=== PATIENT | female | born 1980 | race American Indian/Alaskan Native ===

== ENCOUNTER 2020-12-24 08:42 | Inpatient (IN) | payer MEDICAID ==
[2020-12-24] MEDS ORDERED: PROMETHAZINE 25 MG RECT SUPP PR PRN (10:00)
[2020-12-24] MEDS ORDERED: IBUPROFEN 600 MG TAB PO SCH (10:00)
[2020-12-24] MEDS ORDERED: LANOLIN/ZINC/DIMETHICONE (LANSINOH) 7 GM TP PRN (10:00)
[2020-12-24] MEDS ORDERED: PROMETHAZINE 25 MG TAB PO PRN (10:00)
[2020-12-24] MEDS ORDERED: diphenhydrAMINE 25 MG CAP PO PRN (10:00)
[2020-12-24] MEDS ORDERED: WITCH HAZEL/ GLYCERIN PAD TP PRN (10:00)
[2020-12-24] MEDS ORDERED: ONDANSETRON 4 MG/2 ML INJ IV PRN (10:00)
[2020-12-24] MEDS ORDERED: LOPERAMIDE 2 MG CAP PO PRN (10:18)
[2020-12-24] MEDS ORDERED: LIDOCAINE (2%) 20 MG/1 ML VIAL 20 ML MDV INFILTRATI NR (10:18)
[2020-12-24] MEDS ORDERED: METHYLERGONOVINE MALEATE 0.2 MG/ML VIAL IM PRN (10:18)
[2020-12-24] MEDS ORDERED: OXYTOCIN 10 UNIT/1 ML INJ IM PRN (10:18)
[2020-12-24] MEDS ORDERED: CARBOPROST TROMETHAMINE 250 MCG/1 ML INJ IM PRN (10:18)
[2020-12-24] MEDS ORDERED: TERBUTALINE 1 MG/1 ML INJ SUB-Q PRN (10:18)
[2020-12-24] MEDS ORDERED: ePHEDrine SULFATE 50 MG/1 ML INJ IV PRN (10:18)
[2020-12-24] MEDS ORDERED: BUTORPHANOL 2 MG/1 ML INJ IV PRN ×2 (10:30)
[2020-12-24] MEDS ORDERED: miSOPROStol 200 MCG TAB PR PRN (10:30)
[2020-12-24 10:40] LABS: Hematocrit 35.4 % (30.3-42.9); Hemoglobin 12.2 gm/dl (10.1-14.3)
[2020-12-24] MEDS ORDERED: OXYTOCIN DRIP 30 UNITS/500 ML BAG IV SCH (11:00)
[2020-12-24] MEDS ORDERED: DINOPROSTONE 10 MG VAG SUPP VG NR (11:30)
[2020-12-24] MEDS: LACTATED RINGERS 1,000 ML IV SCH ×2 (12:06→19:21)
--- NOTE | 2020-12-24 13:19 | History and Physical Report ---
History of Present Illness Date of examination: 12/24/20 Date of admission: 12/24/20 09:32 Chief complaint: "I was sent for an induction" History of present illness: 40 y/o presents to [facility] @ 39.1 wks for an IOL r/t AMA and obesity. Pt initiated her pnc @ [facility] @ 10 5/7 wks. She was co managed by [facility] r/t AMA and maternal obesity. 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 Pt took Valtrex, Fe and Vit D throughout her preg. She has a hx of hemorrhoidal surgery. Pt is a former smoker and and reports drinking alcohol occ. Family hx of ca, stroke, and hypothyroidism. Pt's GBS is neg. She was admitted to L&D for a cervidil IOL. Past History Past Medical History: other (vit d def, anemia, AMA, morbid obesity) Past Surgical History: other (hemorrhoidal surgery) FLARER History: herpes Family/Genetic History: cancer, other (stroke, hypothyroidism,) Social history: , full code (former smoker, occ alcohol use), other - Obstetrical History Expected Date of Delivery: 12/30/20 Actual Gestation: 39 Week(s) 1 Day(s) : 8 Para: 4 Hx # Term Pregnancies: 4 Spontaneous Abortions: 1 Induced : 2 Number of Living Children: 4 Medications and Allergies Allergies Allergy/AdvReac Type Severity Reaction Status Date / Time No Known Allergies Allergy Verified 03/12/14 08:08 Home Medications Medication Instructions Recorded Confirmed Last Taken Type Vit-Fe Fumar-FA [ 1 tab PO QDAY 09/07/15 12/24/20 12/24/20 History Vitamin] Calcium Carbonate [Tums 500MG CHEW] 1,000 mg PO PRN PRN 12/24/20 12/24/20 12/24/20 History Tylenol 1,000 mg PO PRN PRN 12/24/20 12/24/20 12/23/20 History Valacyclovir HCl [Valtrex] 1,000 mg PO DAILY 12/24/20 12/24/20 12/24/20 History Vitamin D (Nf) 1 tab PO QWEEK 12/24/20 12/24/20 12/18/20 History Active Meds: Active Medications Butorphanol Tartrate (Butorphanol 2 Mg/1 Ml Inj) 2 mg IV Q2H PRN PRN Reason: Pain , Severe (7-10) Butorphanol Tartrate (Butorphanol 2 Mg/1 Ml Inj) 1 mg IV Q2H PRN PRN Reason: Pain, Moderate(4-6) LABOR PAIN Carboprost Tromethamine (Carboprost Tromethamine 250 Mcg/1 Ml Inj) 250 mcg IM ONCE PRN PRN Reason: Uterine Bleeding Stop: 12/25/20 10:17 Dinoprostone (Dinoprostone 10 Mg Vag Supp) 10 mg VG ONCE NR Stop: 12/24/20 23:00 Last Admin: 12/24/20 11:53 Dose: 10 mg Documented by: Ephedrine Sulfate (Ephedrine Sulfate 50 Mg/1 Ml Inj) 10 mg IV Q2M PRN PRN Reason: Hypotension Fentanyl (Fentanyl 100 Mcg/2 Ml Inj) 100 mcg IV Q2H PRN PRN Reason: Pain,Severe (7-10) LABOR PAIN Oxytocin/Sodium Chloride (Pitocin/Ns 30 Unit/500ml) 30 units in 500 mls @ 2 mls/hr IV TITR NAOMI; Protocol Lactated Ringer's (Lactated Ringers) 1,000 mls @ 125 mls/hr IV DIRECT NAOMI Last Admin: 12/24/20 12:06 Dose: 125 mls/hr Documented by: Oxytocin/Sodium Chloride (Pitocin/Ns 30 Unit/500ml) 30 units in 500 mls @ 40 mls/hr IV TITR NAOMI; Protocol Lidocaine (Lidocaine (2%) 20 Mg/1 Ml Vial 20 Ml Mdv) 20 ml INFILTRATI ONCE NR Stop: 12/24/20 16:00 Loperamide HCl (Loperamide 2 Mg Cap) 2 mg PO ONCE PRN PRN Reason: give with Hemabate Stop: 12/25/20 10:17 Methylergonovine Maleate (Methylergonovine Maleate 0.2 Mg/Ml Vial) 0.2 mg IM ONCE PRN PRN Reason: Uterine Bleeding Stop: 12/25/20 10:17 Mineral Oil (Mineral Oil 30 Ml Oral Liqd) 30 ml PO QHS PRN PRN Reason: Constipation Misoprostol (Misoprostol 200 Mcg Tab) 800 mcg LA ONCE PRN PRN Reason: Uterine Bleeding Stop: 12/25/20 10:29 Oxytocin (Oxytocin 10 Unit/1 Ml Inj) 10 unit IM ONCE PRN PRN Reason: Uterine Bleeding Terbutaline Sulfate (Terbutaline 1 Mg/1 Ml Inj) 0.25 mg SUB-Q ONCE PRN PRN Reason: Hyperstimulation/Hypertonicity Stop: 12/25/20 10:17 Review of Systems All systems: negative Eyes: deferred Ears, nose, mouth and throat: deferred Breasts: normal Genitourinary: normal appearance Rectal Exam: normal exam-external/orifice - Vital Signs Vital signs: Vital Signs Pulse Pulse Ox 95 H 97 12/24/20 09:09 12/24/20 09:09 Temp Pulse Resp BP Pulse Ox 98.1 F 101 H 20 118/67 97 12/24/20 09:34 12/24/20 13:10 12/24/20 09:34 12/24/20 12:46 12/24/20 13:10 - Physical Exam Breasts: Positive: normal Abdomen: Positive: normal appearance, soft, normal bowel sounds Genitourinary (Female): Positive: normal external genitalia, normal perenium Vulva: both: normal Vagina: Positive: normal moisture Uterus: Positive: enlarged, normal contour, other (gravid) Adnexa: both: normal Anus/Rectum: Positive: normal perianal skin Extremities: Positive: normal - Obstetrical FHR: auscultation normal, category 1 Uterine Contraction Monitor Mode: External Cervical Dilatation: 0 Cervical Effacement Percentage: 0 station: -4 Uterine Contraction Pattern: Irregular Uterine Tone Measurement Phase: Resting Uterine Contraction Intensity: Mild Results Result Diagrams: 12/24/20 09:20 All other labs normal. Assessment and Plan A: IUP@ 39.1 wks AMA and M.O HSV II H/O anemia GBS neg P: Admit to L&D for cervidil IOL Notify NICU Continuous monitoring Pain med/ Epidural prn Anticipate - Patient Problems (1) Supervision of normal IUP (intrauterine ) in multigravida Current Visit: Yes Status: Acute (2) AMA (advanced maternal age) multigravida 35+ Current Visit: Yes Status: Acute (3) Morbid (severe) obesity due to excess calories Current Visit: Yes Status: Acute
[2020-12-24] MEDS ORDERED: CALCIUM CARBONATE 500 MG TAB CHEW PO NR (13:28)
[2020-12-24 15:24] LABS: Hematocrit 36.2 % (30.3-42.9); Hemoglobin 12.3 gm/dl (10.1-14.3); Mean Corpuscular HGB Conc 34 % (30-34); Mean Corpuscular Volume 94 fl (79-97); Platelet Count 249 K/mm3 (140-440); Red Blood Count 3.84 M/mm3 (3.65-5.03); Red Cell Distribution Width 14.8 % (13.2-15.2)
[2020-12-24] MEDS: CALCIUM CARBONATE 500 MG TAB CHEW PO PRN (19:57)
[2020-12-24] MEDS ORDERED: MAGNESIUM HYDROXIDE (MOM) ORAL LIQD UDC PO PRN (22:00)
[2020-12-24] MEDS ORDERED: MINERAL OIL 30 ML ORAL LIQD PO PRN (22:00)
[2020-12-25] MEDS: fentaNYL 100 MCG/2 ML INJ IV PRN ×3 (02:20→20:12)
[2020-12-25] MEDS: LACTATED RINGERS 1,000 ML IV SCH ×2 (07:55→15:27)
--- NOTE | 2020-12-25 10:06 | Progress Note ---
Assessment and Plan - Patient Problems (1) AMA (advanced maternal age) multigravida 35+ Current Visit: Yes Status: Acute Plan to address problem: For IOL. S/p cervidil #2. For repeat cervidil vs pitocin pending confirmation of cephalic presentation given T location. --Anticipate (2) Morbid (severe) obesity due to excess calories Current Visit: Yes Status: Acute Subjective - Subjective Date of service: 12/25/20 Principal diagnosis: IOL for AMA and MO Interval history: Patient doing okay. Undergoing IOL. S/p cervidil #1 last night. For cervidil #2 vs pitocin. Denies LOF or VB. +FM. Denies PIH symptoms. Reports previous deliveries with active labor. Objective - Vital Signs Vital Signs: Vital Signs - 12hr 12/25/20 12/25/20 12/25/20 00:12 06:27 06:32 Temperature 98.7 F Pulse Rate 76 76 73 Respiratory Rate Blood Pressure 117/76 O2 Sat by Pulse 98 97 Oximetry 12/25/20 12/25/20 12/25/20 06:37 06:42 06:47 Temperature Pulse Rate 82 80 73 Respiratory Rate Blood Pressure O2 Sat by Pulse 97 97 97 Oximetry 12/25/20 12/25/20 12/25/20 06:52 06:57 07:02 Temperature Pulse Rate 68 73 74 Respiratory Rate Blood Pressure O2 Sat by Pulse 97 97 97 Oximetry 12/25/20 12/25/20 12/25/20 07:07 07:12 07:17 Temperature Pulse Rate 75 78 78 Respiratory Rate Blood Pressure O2 Sat by Pulse 96 97 97 Oximetry 12/25/20 12/25/20 12/25/20 07:22 07:27 07:32 Temperature Pulse Rate 79 68 79 Respiratory Rate Blood Pressure O2 Sat by Pulse 95 96 97 Oximetry 12/25/20 12/25/20 12/25/20 07:37 07:42 07:47 Temperature Pulse Rate 76 90 102 H Respiratory Rate Blood Pressure O2 Sat by Pulse 97 98 98 Oximetry 12/25/20 12/25/20 12/25/20 07:52 07:57 07:58 Temperature Pulse Rate 86 88 86 Respiratory Rate Blood Pressure 128/77 O2 Sat by Pulse 99 98 Oximetry 12/25/20 12/25/20 12/25/20 08:02 08:03 08:07 Temperature 97.7 F Pulse Rate 87 88 Respiratory 18 Rate Blood Pressure O2 Sat by Pulse 99 98 97 Oximetry 12/25/20 12/25/20 12/25/20 08:12 08:17 08:22 Temperature Pulse Rate 81 76 89 Respiratory Rate Blood Pressure O2 Sat by Pulse 98 98 97 Oximetry 12/25/20 12/25/20 12/25/20 08:27 08:32 08:37 Temperature Pulse Rate 100 H 78 81 Respiratory Rate Blood Pressure O2 Sat by Pulse 97 98 97 Oximetry 12/25/20 12/25/20 12/25/20 08:42 08:47 08:52 Temperature Pulse Rate 77 81 78 Respiratory Rate Blood Pressure O2 Sat by Pulse 97 98 97 Oximetry 12/25/20 12/25/20 12/25/20 08:57 09:02 09:07 Temperature Pulse Rate 82 72 78 Respiratory Rate Blood Pressure O2 Sat by Pulse 97 98 98 Oximetry 12/25/20 12/25/20 09:12 09:17 Temperature Pulse Rate 91 H 96 H Respiratory Rate Blood Pressure O2 Sat by Pulse 93 97 Oximetry - Exam Abdomen: Present: normal appearance, normal bowel sounds Uterus: Present: fundal height above umbilicus FHR: category 1 Uterine Contraction Monitor Mode: External Uterine Contraction Pattern: Irregular - Labs Labs: Laboratory Results - last 24 hr 12/24/20 12/24/20 12/24/20 09:20 09:20 10:19 WBC RBC Hgb 12.2 Hct 35.4 MCV MCH MCHC RDW Plt Count Coronavirus (PCR) Negative Blood Type O POSITIVE Antibody Screen Negative 12/24/20 Unknown WBC 6.8 RBC 3.84 Hgb 12.3 Hct 36.2 MCV 94 MCH 32 MCHC 34 RDW 14.8 Plt Count 249 Coronavirus (PCR) Blood Type Antibody Screen
[2020-12-25] MEDS ORDERED: DINOPROSTONE 10 MG VAG SUPP VG NR (11:06)
[2020-12-25] MEDS: CALCIUM CARBONATE 500 MG TAB CHEW PO PRN (14:32)
[2020-12-26] MEDS: OXYTOCIN DRIP 30 UNITS/500 ML BAG IV SCH ×2 (02:05→16:55)
[2020-12-26] MEDS ORDERED: NALOXONE 2 MG/2 ML INJ IV PRN (04:31)
[2020-12-26] MEDS ORDERED: ePHEDrine SULFATE 50 MG/1 ML INJ IV PRN (04:31)
[2020-12-26] MEDS ORDERED: NalbUPHINE 10 MG/1 ML INJ IV PRN (04:31)
[2020-12-26] MEDS ORDERED: ONDANSETRON 4 MG/2 ML INJ IV PRN ×2 (04:31→18:00)
[2020-12-26] MEDS ORDERED: LACTATED RINGERS 250 ML IV SOLN IV ONE (04:31)
[2020-12-26] MEDS ORDERED: diphenhydrAMINE 50 MG/ML VIAL IV PRN (04:31)
--- NOTE | 2020-12-26 04:32 | Anesthesia Consultation ---
Anesthesia Consult and Med Hx Date of service: 12/26/20 - Airway Anesthetic Teeth Evaluation: Good ROM Head & Neck: Adequate Mental/Hyoid Distance: Adequate Mallampati Class: Class III Intubation Access Assessment: Possibly Difficult - Pulmonary Exam CTA: Yes - Cardiac Exam Cardiac Exam: RRR - Pre-Operative Health Status ASA Pre-Surgery Classification: ASA2 Proposed Anesthetic Plan: Epidural - Pulmonary Hx Smoking: No Hx Asthma: No COPD: No Hx Pneumonia: No Hx Sleep Apnea: No - Cardiovascular System Hx Hypertension: No Hx Coronary Artery Disease: No Hx Heart Attack/AMI: No Hx Angina: No Hx Cardia Arrhythmia: No - Central Nervous System Hx Seizures: No CVA: No Hx Psychiatric Problems: No - Gastrointestinal Hx Gastroesophageal Reflux Disease: No - Endocrine Hx Renal Disease: No Hx End Stage Renal Disease: No Hx Liver Disease: No Hx Insulin Dependent Diabetes: No Hx Non-Insulin Dependent Diabetes: No Hx Thyroid Disease: No Hx Hypothyroidism: No Hx Hyperthyroidism: No - Hematic Hx Anemia: Yes Hx Sickle Cell Disease: No - Other Systems Hx Alcohol Use: Yes (Occasionally) Hx Obesity: Yes
--- NOTE | 2020-12-26 04:34 | Progress Note ---
Labor Epidural - Labor Epidural Start Time: 04:12 Stop Time: 04:25 Performed by:: ESTHER ESCOBEDO Procedure: Patient is requesting epidural for labor and pain. H&P, labs were reviewed. Patient IDed, H&P reviewed, all questions and concerns were answered, and consent was signed. Timeout was performed at bedside. Patient in sitting position. Sterile prep and drape was performed. 3ml of 1% lidocaine skin wheal at L[3]- L [4]. 18-gauge [employer] epidural needle was advanced to loss of resistance with air technique 8cm. Negative CSF negative blood. Epidural catheter advanced to [14] centimeters. [negative] Aspiration [negative] test dose. Sterile dressing applied. Patient tolerated procedure.
[2020-12-26] MEDS: fentaNYL-BUPIV 2 MCG/ML-0.125% 200 MCG/100 ML BAG EPIDURAL SCH ×2 (04:38→12:45)
--- NOTE | 2020-12-26 09:23 | Progress Note ---
Assessment and Plan A: IUP@ 39.3 wks IOL r/t AMA and Obesity GBS neg P: Continue monitoring with Pitocin AROM Anticipate - Patient Problems (1) Supervision of normal IUP (intrauterine ) in multigravida Current Visit: Yes Status: Acute (2) AMA (advanced maternal age) multigravida 35+ Current Visit: Yes Status: Acute (3) Morbid (severe) obesity due to excess calories Current Visit: Yes Status: Acute Subjective - Subjective Date of service: 12/26/20 Principal diagnosis: IOL for AMA and MO Interval history: 40 y/o presents to [facility] @ 39.1 wks for an IOL r/t AMA and obesity. [facility] She was co managed by [facility] r/t AMA and maternal obesity. 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 Pt took Valtrex, Fe and Vit D throughout her preg. She has a hx of hemorrhoidal surgery. Pt is a former smoker and and reports drinking alcohol occ. Family hx of ca, stroke, and hypothyroidism. Pt's GBS is neg. She was admitted to L&D for a cervidil IOL. Patient reports: movement normal Objective - Vital Signs Vital Signs: Vital Signs - 12hr 12/25/20 12/25/20 12/25/20 21:21 21:26 21:31 Temperature Pulse Rate 76 83 95 H Respiratory Rate Blood Pressure Blood Pressure [Left] O2 Sat by Pulse 96 98 98 Oximetry 12/25/20 12/25/20 12/25/20 21:36 21:41 21:45 Temperature Pulse Rate 86 80 91 H Respiratory Rate Blood Pressure Blood Pressure [Left] O2 Sat by Pulse 96 98 90 Oximetry 12/25/20 12/25/20 12/25/20 21:46 21:56 22:01 Temperature Pulse Rate 94 H 101 H 88 Respiratory Rate Blood Pressure Blood Pressure [Left] O2 Sat by Pulse 98 81 L 100 Oximetry 12/25/20 12/25/20 12/25/20 22:06 22:11 22:16 Temperature Pulse Rate 91 H 97 H 91 H Respiratory Rate Blood Pressure Blood Pressure [Left] O2 Sat by Pulse 99 98 100 Oximetry 12/25/20 12/25/20 12/25/20 22:21 22:26 22:31 Temperature Pulse Rate 81 83 87 Respiratory Rate Blood Pressure Blood Pressure [Left] O2 Sat by Pulse 99 99 98 Oximetry 12/25/20 12/25/20 12/25/20 22:36 22:41 22:46 Temperature Pulse Rate 88 87 89 Respiratory Rate Blood Pressure Blood Pressure [Left] O2 Sat by Pulse 98 98 97 Oximetry 12/25/20 12/25/20 12/25/20 22:51 22:56 23:01 Temperature Pulse Rate 89 100 H 87 Respiratory Rate Blood Pressure Blood Pressure [Left] O2 Sat by Pulse 97 98 97 Oximetry 12/25/20 12/25/20 12/25/20 23:06 23:11 23:16 Temperature Pulse Rate 89 95 H 91 H Respiratory Rate Blood Pressure Blood Pressure [Left] O2 Sat by Pulse 98 97 97 Oximetry 12/25/20 12/25/20 12/25/20 23:21 23:26 23:31 Temperature Pulse Rate 95 H 101 H 93 H Respiratory Rate Blood Pressure Blood Pressure [Left] O2 Sat by Pulse 98 97 99 Oximetry 12/25/20 12/25/20 12/25/20 23:36 23:41 23:46 Temperature Pulse Rate 89 101 H 98 H Respiratory Rate Blood Pressure Blood Pressure [Left] O2 Sat by Pulse 97 99 98 Oximetry 12/25/20 12/25/20 12/26/20 23:51 23:56 00:03 Temperature Pulse Rate 90 104 H 98 H Respiratory Rate Blood Pressure Blood Pressure [Left] O2 Sat by Pulse 97 99 96 Oximetry 12/26/20 12/26/20 12/26/20 00:08 00:13 00:18 Temperature Pulse Rate 82 88 98 H Respiratory Rate Blood Pressure Blood Pressure [Left] O2 Sat by Pulse 98 97 98 Oximetry 12/26/20 12/26/20 12/26/20 00:23 00:28 00:29 Temperature Pulse Rate 85 81 87 Respiratory Rate Blood Pressure 133/69 Blood Pressure [Left] O2 Sat by Pulse 97 99 Oximetry 12/26/20 12/26/20 12/26/20 00:33 00:38 03:02 Temperature Pulse Rate 75 85 88 Respiratory Rate Blood Pressure Blood Pressure [Left] O2 Sat by Pulse 98 98 96 Oximetry 12/26/20 12/26/20 12/26/20 03:07 03:12 03:17 Temperature Pulse Rate 84 94 H 85 Respiratory Rate Blood Pressure Blood Pressure [Left] O2 Sat by Pulse 96 96 97 Oximetry 12/26/20 12/26/20 12/26/20 03:22 03:27 03:32 Temperature Pulse Rate 90 86 84 Respiratory Rate Blood Pressure Blood Pressure [Left] O2 Sat by Pulse 97 97 97 Oximetry 12/26/20 12/26/20 12/26/20 03:37 03:42 03:47 Temperature Pulse Rate 88 86 80 Respiratory Rate Blood Pressure 133/84 Blood Pressure [Left] O2 Sat by Pulse 98 98 98 Oximetry 12/26/20 12/26/20 12/26/20 03:52 03:57 04:04 Temperature Pulse Rate 73 83 87 Respiratory Rate Blood Pressure Blood Pressure [Left] O2 Sat by Pulse 99 97 100 Oximetry 12/26/20 12/26/20 12/26/20 04:06 04:07 04:09 Temperature Pulse Rate 93 H 90 89 Respiratory Rate Blood Pressure 144/88 143/88 137/86 Blood Pressure [Left] O2 Sat by Pulse 99 Oximetry 12/26/20 12/26/20 12/26/20 04:11 04:13 04:14 Temperature Pulse Rate 85 89 91 H Respiratory Rate Blood Pressure 147/89 147/90 Blood Pressure [Left] O2 Sat by Pulse 99 Oximetry 12/26/20 12/26/20 12/26/20 04:15 04:17 04:19 Temperature Pulse Rate 92 H 90 91 H Respiratory Rate Blood Pressure 142/91 153/93 144/84 Blood Pressure [Left] O2 Sat by Pulse 99 Oximetry 12/26/20 12/26/20 12/26/20 04:21 04:23 04:24 Temperature Pulse Rate 93 H 90 87 Respiratory Rate Blood Pressure 136/79 132/84 Blood Pressure [Left] O2 Sat by Pulse 98 Oximetry 12/26/20 12/26/20 12/26/20 04:25 04:27 04:29 Temperature Pulse Rate 88 90 90 Respiratory Rate Blood Pressure 126/82 132/89 140/90 Blood Pressure [Left] O2 Sat by Pulse 99 Oximetry 12/26/20 12/26/20 12/26/20 04:31 04:33 04:34 Temperature Pulse Rate 89 90 84 Respiratory Rate Blood Pressure 134/89 137/79 Blood Pressure [Left] O2 Sat by Pulse 99 Oximetry 12/26/20 12/26/20 12/26/20 04:35 04:37 04:39 Temperature Pulse Rate 93 H 96 H 84 Respiratory Rate Blood Pressure 144/82 117/74 132/80 Blood Pressure [Left] O2 Sat by Pulse 97 Oximetry 12/26/20 12/26/20 12/26/20 04:41 04:43 04:44 Temperature Pulse Rate 85 93 H 92 H Respiratory Rate Blood Pressure 126/79 117/81 Blood Pressure [Left] O2 Sat by Pulse 99 Oximetry 12/26/20 12/26/20 12/26/20 04:45 04:47 04:49 Temperature Pulse Rate 85 82 80 Respiratory Rate Blood Pressure 127/88 132/88 143/85 Blood Pressure [Left] O2 Sat by Pulse 98 Oximetry 12/26/20 12/26/20 12/26/20 04:52 04:54 04:57 Temperature Pulse Rate 87 92 H 86 Respiratory Rate Blood Pressure 137/70 129/74 Blood Pressure [Left] O2 Sat by Pulse 98 Oximetry 12/26/20 12/26/20 12/26/20 04:59 05:01 05:03 Temperature Pulse Rate 86 78 83 Respiratory Rate Blood Pressure 125/70 134/78 132/77 Blood Pressure [Left] O2 Sat by Pulse 98 Oximetry 12/26/20 12/26/20 12/26/20 05:04 05:06 05:09 Temperature Pulse Rate 84 90 84 Respiratory Rate Blood Pressure 122/63 Blood Pressure [Left] O2 Sat by Pulse 98 98 Oximetry 12/26/20 12/26/20 12/26/20 05:14 05:19 05:23 Temperature Pulse Rate 89 86 81 Respiratory Rate Blood Pressure 130/75 Blood Pressure [Left] O2 Sat by Pulse 98 97 Oximetry 12/26/20 12/26/20 12/26/20 05:24 05:29 05:34 Temperature Pulse Rate 87 80 80 Respiratory Rate Blood Pressure Blood Pressure [Left] O2 Sat by Pulse 98 98 96 Oximetry 12/26/20 12/26/20 12/26/20 05:36 05:39 05:44 Temperature Pulse Rate 84 80 83 Respiratory Rate Blood Pressure 118/76 Blood Pressure [Left] O2 Sat by Pulse 96 98 Oximetry 12/26/20 12/26/20 12/26/20 05:49 05:52 05:53 Temperature Pulse Rate 111 H 85 86 Respiratory Rate Blood Pressure 122/76 Blood Pressure [Left] O2 Sat by Pulse 100 94 Oximetry 12/26/20 12/26/20 12/26/20 05:54 05:59 06:04 Temperature Pulse Rate 97 H 83 90 Respiratory Rate Blood Pressure Blood Pressure [Left] O2 Sat by Pulse 96 96 100 Oximetry 12/26/20 12/26/20 12/26/20 06:07 06:09 06:14 Temperature Pulse Rate 84 79 98 H Respiratory Rate Blood Pressure 123/78 Blood Pressure [Left] O2 Sat by Pulse 99 99 Oximetry 12/26/20 12/26/20 12/26/20 06:19 06:21 06:24 Temperature Pulse Rate 76 96 H 87 Respiratory Rate Blood Pressure 113/73 Blood Pressure [Left] O2 Sat by Pulse 97 100 Oximetry 12/26/20 12/26/20 12/26/20 06:29 06:34 06:37 Temperature Pulse Rate 91 H 78 78 Respiratory Rate Blood Pressure 126/80 Blood Pressure [Left] O2 Sat by Pulse 99 97 Oximetry 12/26/20 12/26/20 12/26/20 06:39 06:44 06:49 Temperature Pulse Rate 83 76 78 Respiratory Rate Blood Pressure Blood Pressure [Left] O2 Sat by Pulse 98 98 98 Oximetry 12/26/20 12/26/20 12/26/20 06:51 06:54 06:59 Temperature Pulse Rate 89 91 H 80 Respiratory Rate Blood Pressure 124/79 Blood Pressure [Left] O2 Sat by Pulse 99 98 Oximetry 12/26/20 12/26/20 12/26/20 07:04 07:07 07:09 Temperature 99.7 F H Pulse Rate 90 75 89 Respiratory 14 Rate Blood Pressure 135/85 Blood Pressure 135/85 [Left] O2 Sat by Pulse 100 98 Oximetry 12/26/20 12/26/20 12/26/20 07:14 07:19 07:21 Temperature Pulse Rate 82 83 86 Respiratory Rate Blood Pressure 123/76 Blood Pressure [Left] O2 Sat by Pulse 98 98 Oximetry 12/26/20 12/26/20 12/26/20 07:24 07:29 07:34 Temperature Pulse Rate 83 88 83 Respiratory Rate Blood Pressure Blood Pressure [Left] O2 Sat by Pulse 99 98 98 Oximetry 12/26/20 12/26/20 12/26/20 07:37 07:39 07:44 Temperature Pulse Rate 83 86 81 Respiratory Rate Blood Pressure 128/82 Blood Pressure [Left] O2 Sat by Pulse 100 98 Oximetry 12/26/20 12/26/20 12/26/20 07:49 07:52 07:54 Temperature Pulse Rate 75 78 82 Respiratory Rate Blood Pressure 131/83 Blood Pressure [Left] O2 Sat by Pulse 98 97 Oximetry 12/26/20 12/26/20 12/26/20 07:59 08:04 08:08 Temperature Pulse Rate 89 80 76 Respiratory Rate Blood Pressure 126/83 Blood Pressure [Left] O2 Sat by Pulse 97 99 Oximetry 12/26/20 12/26/20 12/26/20 08:09 08:14 08:19 Temperature Pulse Rate 90 76 76 Respiratory Rate Blood Pressure Blood Pressure [Left] O2 Sat by Pulse 98 97 98 Oximetry 12/26/20 12/26/20 12/26/20 08:21 08:24 08:29 Temperature Pulse Rate 82 79 87 Respiratory Rate Blood Pressure 127/82 Blood Pressure [Left] O2 Sat by Pulse 98 99 Oximetry 12/26/20 12/26/20 12/26/20 08:34 08:38 08:39 Temperature Pulse Rate 84 78 84 Respiratory Rate Blood Pressure 132/81 Blood Pressure [Left] O2 Sat by Pulse 97 98 Oximetry 12/26/20 12/26/20 12/26/20 08:44 08:49 08:51 Temperature Pulse Rate 89 93 H 83 Respiratory Rate Blood Pressure 134/85 Blood Pressure [Left] O2 Sat by Pulse 100 100 Oximetry 12/26/20 12/26/20 12/26/20 08:54 08:59 09:04 Temperature Pulse Rate 85 83 87 Respiratory Rate Blood Pressure Blood Pressure [Left] O2 Sat by Pulse 100 100 99 Oximetry 12/26/20 12/26/20 12/26/20 09:09 09:14 09:19 Temperature Pulse Rate 84 85 89 Respiratory Rate Blood Pressure Blood Pressure [Left] O2 Sat by Pulse 100 99 97 Oximetry - Exam Breasts: normal Abdomen: Present: normal appearance, soft, normal bowel sounds Vulva: both: normal Uterus: Present: normal FHR: auscultation normal, category 1 Uterine Contraction Monitor Mode: External Cervical Dilatation: 3 (Per nurse) Cervical Effacement Percentage: 50 station: -3 Uterine Contraction Pattern: Regular Uterine Tone Measurement Phase: Resting Uterine Contraction Intensity: Mild Extremities: normal
[2020-12-26] MEDS: LACTATED RINGERS 1,000 ML IV SCH (12:22)
[2020-12-26] MEDS ORDERED: BUPIVACAINE/PF (0.25%) 2.5 MG/ML 10 ML VIAL INFILTRATI ONE (14:49)
--- NOTE | 2020-12-26 17:30 | Procedure Note ---
OB Delivery Note - Delivery Date of Delivery: 12/26/20 Surgeon: CATE COBB Estimated blood loss: <100cc - Vaginal Delivery presentation: vertex Delivery position: OA Intrapartum events: shoulder dystocia Delivery induction: cervidil Delivery augmentation: rupture of membranes, pitocin Delivery monitor: external FHT, external uterine Route of delivery: Delivery placenta: spontaneous Delivery cord: 3 umbilical vessels Episiotomy: none Delivery laceration: none Anesthesia: epidural Delivery comments: Called to for delivery. SVE 10/100%/+1 and pushing begin. of a stunned live female infant in OA position. Spontaneous delivery of infant's head. [employer] was unable to deliver 's shoulders with normal axial traction. Pt was noted to have inadequate maternal pushing effort due to her epidural. After several attempts to deliver infant's shoulders, a shoulder dystocia was called. 's shoulders were delivered after 1 min with pt in McRobert's position while nurse was applying s/p pressure. Cord was clamped x 2 and cut then was given to NICU nurse for an asses. 7&9. Spontaneous delivery of an intact placenta with 3CV. FF@ U2 with fundal massage and IV Pitocin. An exploration of tears revealed none. EBL <100cc. FW 3530 Gms. Mom and baby was left in stable condition with nurses. - A at 1 minute: 7 at 5 minutes: 9 Gender: Female
[2020-12-26] MEDS ORDERED: LANOLIN/ZINC/DIMETHICONE (LANSINOH) 7 GM TP PRN (18:00)
[2020-12-26] MEDS ORDERED: WITCH HAZEL/ GLYCERIN PAD TP PRN (18:00)
[2020-12-26] MEDS ORDERED: PROMETHAZINE 25 MG TAB PO PRN (18:00)
[2020-12-26] MEDS ORDERED: PROMETHAZINE 25 MG RECT SUPP PR PRN (18:00)
[2020-12-26] MEDS ORDERED: diphenhydrAMINE 25 MG CAP PO PRN (18:00)
[2020-12-26] MEDS ORDERED: MAGNESIUM HYDROXIDE (MOM) ORAL LIQD UDC PO PRN (22:00)
[2020-12-26] MEDS: IBUPROFEN 600 MG TAB PO SCH (22:14)
[2020-12-27] MEDS: oxyCODONE /ACETAMINOPHEN 5-325MG TAB PO PRN ×3 (00:42→15:59)
[2020-12-27] MEDS: IBUPROFEN 600 MG TAB PO SCH ×5 (06:19→23:39)
[2020-12-27 08:52] LABS: Hematocrit 31.6 % (30.3-42.9); Hemoglobin 10.5 gm/dl (10.1-14.3)
[2020-12-27] MEDS: PRENATAL VIT27-FE FUMARATE-FOLIC ACID VIT TAB PO SCH (10:05)
--- NOTE | 2020-12-27 11:26 | Progress Note ---
Assessment and Plan A: day 1 S/P complicated by shoulder dystocia. AMA. Obesity. Anemia. P: Supplement with oral iron. Anticipate discharge home tomorrow if patient continues to do well. Subjective - Subjective Date of service: 12/27/20 Principal diagnosis: day 1 S/P Interval history: Doing well; no complaints. Patient reports: appetite normal, voiding normally, pain well controlled, flatus, ambulating normally, no dizzy ambulation, no nauseated [place]: doing well Objective - Vital Signs Latest vital signs: Vital Signs Temp Pulse Resp BP BP Pulse Ox 12/27/20 10:05 18 12/27/20 07:46 97.7 F 79 18 133/88 99 12/27/20 06:19 18 12/27/20 05:54 97.5 F L 82 18 120/78 97 12/27/20 01:42 18 12/27/20 01:06 97.8 F 74 18 126/83 97 12/27/20 00:42 20 12/27/20 00:00 18 12/26/20 23:14 18 12/26/20 22:14 18 12/26/20 20:54 98.7 F 100 H 20 126/76 12/26/20 19:07 67 91 12/26/20 19:06 77 98 12/26/20 19:02 66 135/83 12/26/20 19:01 75 98 12/26/20 18:56 70 100 12/26/20 18:51 80 98 12/26/20 18:47 79 132/94 12/26/20 18:46 87 100 12/26/20 18:42 82 87 12/26/20 18:41 75 99 12/26/20 18:36 85 91 12/26/20 18:32 71 125/88 12/26/20 18:31 81 98 12/26/20 18:26 66 98 12/26/20 18:21 64 99 12/26/20 18:17 60 137/84 12/26/20 18:16 68 98 12/26/20 18:11 77 94 12/26/20 18:06 62 99 12/26/20 18:02 74 134/85 12/26/20 18:01 72 100 12/26/20 17:56 76 99 12/26/20 17:51 77 100 12/26/20 17:47 62 133/79 12/26/20 17:46 66 100 12/26/20 17:41 64 99 12/26/20 17:36 76 100 12/26/20 17:32 64 131/75 12/26/20 17:31 65 99 12/26/20 17:26 73 100 12/26/20 17:21 81 96 12/26/20 17:17 75 128/69 12/26/20 17:16 94 H 96 12/26/20 17:10 85 98 12/26/20 17:05 70 99 12/26/20 17:02 79 115/67 12/26/20 17:00 89 98 12/26/20 16:55 90 98 12/26/20 16:50 88 97 12/26/20 16:47 85 116/70 12/26/20 16:45 86 96 12/26/20 16:40 92 H 98 12/26/20 16:35 97 H 99 12/26/20 16:32 92 H 119/71 12/26/20 16:30 93 H 98 12/26/20 16:25 138 H 97 12/26/20 16:21 73 86 12/26/20 16:19 72 100 12/26/20 16:14 82 100 12/26/20 16:12 58 L 92 12/26/20 16:11 76 117/59 12/26/20 16:09 83 100 12/26/20 16:04 80 99 12/26/20 15:59 77 97 12/26/20 15:54 83 97 12/26/20 15:49 83 98 12/26/20 15:44 74 97 12/26/20 15:41 78 120/65 12/26/20 15:39 83 97 12/26/20 15:34 74 97 12/26/20 15:29 69 98 12/26/20 15:24 77 97 12/26/20 15:19 72 97 12/26/20 15:14 80 97 12/26/20 15:10 80 110/59 12/26/20 15:09 81 97 12/26/20 15:04 80 98 12/26/20 14:59 71 97 12/26/20 14:54 71 98 12/26/20 14:49 76 97 12/26/20 14:45 85 92 12/26/20 14:44 77 99 12/26/20 14:40 83 135/83 12/26/20 14:39 84 98 12/26/20 14:34 82 99 12/26/20 14:29 84 100 12/26/20 14:24 84 99 12/26/20 14:19 81 100 12/26/20 14:18 98 H 92 12/26/20 14:14 71 100 12/26/20 14:10 81 138/82 12/26/20 14:09 76 100 12/26/20 14:04 73 100 12/26/20 13:59 89 96 12/26/20 13:54 70 98 12/26/20 13:49 75 99 12/26/20 13:44 87 97 12/26/20 13:41 74 160/92 12/26/20 13:39 74 99 12/26/20 13:34 82 98 12/26/20 13:29 85 98 12/26/20 13:24 89 99 12/26/20 13:19 87 97 12/26/20 13:14 88 97 12/26/20 13:11 84 122/68 12/26/20 13:09 81 97 12/26/20 13:04 91 H 97 12/26/20 12:59 87 98 12/26/20 12:54 83 98 12/26/20 12:49 82 97 12/26/20 12:44 81 98 12/26/20 12:40 81 136/83 12/26/20 12:39 79 97 12/26/20 12:34 69 98 12/26/20 12:29 72 97 12/26/20 12:24 90 96 12/26/20 12:19 86 97 12/26/20 12:14 63 97 12/26/20 12:10 80 133/79 12/26/20 12:09 89 97 12/26/20 12:04 76 97 12/26/20 11:59 90 97 12/26/20 11:54 87 98 12/26/20 11:49 78 98 12/26/20 11:44 73 98 12/26/20 11:42 72 139/85 12/26/20 11:39 82 99 12/26/20 11:34 83 100 12/26/20 11:29 75 100 Intake and Output 12/26/20 12/27/20 12/27/20 23:59 07:59 15:59 Intake Total 77.5 600 Output Total 75 700 Balance 2.5 -100 Intake: IV 77.5 PITOCin/NS 30 UNIT/500ML 77.5 30 units In 500 ml @ 2 mls/hr IV TITR NAOMI Rx#: [id number] Intake, Free Water 600 Output: Urine 75 700 Indwelling Catheter 75 Void 700 Other: Total, Output Amount 75 200 # Voids Void 1 Estimated Blood Loss 350 - Exam Cardiovascular: Present: Regular rate Lungs: Present: Clear to auscultation Abdomen: Present: normal appearance, soft. Absent: distention, tenderness, guarding, rigidity Uterus: Present: normal, firm, fundal height below umbilicus. Absent: bogginess, tenderness, other Extremities: Present: edema. Absent: tenderness
[2020-12-27] MEDS: FERROUS SULFATE 325 MG TAB PO SCH ×2 (12:11→23:39)
--- NOTE | 2020-12-27 21:52 | Post Anesthesia Evaluation ---
- Post Anesthesia Evaluation Patient Participated: Yes Airway Patent: Yes Stable Respiratory Function: Yes Nausea/Vomiting: No Temp > 96.8F: Yes Pain Manageable: Yes Adequeate Hydration: Yes Anesthesia Complications: No Block Receding Appropriately: Yes
[2020-12-28] MEDS: IBUPROFEN 600 MG TAB PO SCH (05:46)
--- NOTE | 2020-12-28 07:06 | Progress Note ---
Assessment and Plan A: day 2 S/P . Anemia. P: Discharge patient home today. Discussed with patient discharge instructions and warning signs. Advised patient to continue taking her vitamins and iron supplements at home. Advised patient to avoid intercourse, lifting, housework. Advised patient to follow up at [facility] office in 1 week. Patient voiced understaning of instructions. Subjective - Subjective Date of service: 12/28/20 Principal diagnosis: day 2 S/P Interval history: Doing well; no complaints. Desires discharge home today. Patient reports: appetite normal, voiding normally, pain well controlled, ambulating normally, no dizzy ambulation, no nauseated : doing well Objective - Vital Signs Latest vital signs: Vital Signs Temp Pulse Resp BP Pulse Ox 12/28/20 05:46 18 12/28/20 00:39 18 12/28/20 00:22 97.8 F 80 20 108/61 97 12/27/20 23:39 18 12/27/20 17:59 18 12/27/20 15:59 18 12/27/20 15:58 98.0 F 75 18 131/83 99 12/27/20 12:42 97.6 F 18 138/89 12/27/20 10:05 18 12/27/20 07:46 97.7 F 79 18 133/88 99 Intake and Output 12/27/20 12/27/20 12/28/20 15:59 23:59 07:59 Intake Total 360 840 Balance 360 840 Intake: Oral 600 Intake, Free Water 360 240 Other: Total, Intake Amount 240 # Voids Void 1 1 1 # Bowel Movements 1 - Exam Cardiovascular: Present: Regular rate Lungs: Present: Clear to auscultation Abdomen: Present: normal appearance, soft. Absent: distention, tenderness, gu arding, rigidity Uterus: Present: normal, firm, fundal height below umbilicus. Absent: bogginess, tenderness Extremities: Absent: tenderness
--- NOTE | 2020-12-28 07:10 | Discharge Summary ---
Providers - Providers Date of Admission: 12/24/20 09:32 Date of discharge: 12/28/20 Attending physician: IRMA GIRON MD Primary care physician: PERI SANCHEZ Hospitalization Reason for admission: induction of labor Delivery: Episiotomy: none Laceration: none Other procedures: none complications: none Discharge diagnosis: IUP at term delivered [place] baby: female Pertinent studies: Labs Hospital course: Stable hospital course. Condition at discharge: Good Disposition: DC-01 TO HOME OR SELFCARE - Discharge Diagnoses (1) Term delivered Status: Acute (2) Anemia Status: Acute Plan - Provider Discharge Summary Activity: routine, no sex for 6 weeks, no heavy lifting 4 weeks, no strenuous exercise Diet: routine Instructions: routine Additional instructions: Continue taking your vitamin and iron supplements at home. Follow up at [facility] visit in 1 week. Call your doctor immediately for: * Fever > 100.5 * Heavy vaginal bleeding ( >1 pad per hour) * Severe persistent headache * Shortness of breath * Reddened, hot, painful area to leg or breast - Follow up plan Follow up: PERI SANCHEZ DO [Primary Care Provider] - 7 Days Forms: [facility] Discharge Summary, Discharge Signature Page
[2020-12-28 09:14] VITALS: BP 125/82
[2020-12-28] MEDS: FERROUS SULFATE 325 MG TAB PO SCH (09:40)
[2020-12-28] MEDS: oxyCODONE /ACETAMINOPHEN 5-325MG TAB PO PRN (09:40)
[2020-12-28] MEDS: PRENATAL VIT27-FE FUMARATE-FOLIC ACID VIT TAB PO SCH (09:40)
== END 2020-12-28 10:51 | disposition home or self-care (01) | DRG 774 ==
LOC: TRG 08:42 → LD 08:46 → TRG 09:39 → OB 12-26 20:01
PROC: 10E0XZZ Delivery of Products of Conception, External Approach (ICD-10-PCS; principal; 2020-12-26)
PROC: 3E0R3BZ Introduction of Anesthetic Agent into Spinal Canal, Percutaneous Approach (ICD-10-PCS; 2020-12-26)
PROC: 00HU33Z Insertion of Infusion Device into Spinal Canal, Percutaneous Approach (ICD-10-PCS; 2020-12-26)
DX: O99.02 Anemia complicating childbirth (principal); O98.32 Other infections with a predominantly sexual mode of transmission complicating childbirth; Z20.822 Contact with and (suspected) exposure to COVID-19; O99.214 Obesity complicating childbirth; E66.01 Morbid (severe) obesity due to excess calories; Z3A.39 39 weeks gestation of pregnancy; Z37.0 Single live birth; O09.523 Supervision of elderly multigravida, third trimester; O66.0 Obstructed labor due to shoulder dystocia; A60.00 Herpesviral infection of urogenital system, unspecified; D64.9 Anemia, unspecified
CPT/HCPCS: 36415; 59200; 85014; 85018; 85027; 86850; 86900; 86901; 99211; G0378; G0463; J2405; J2590; J3010; J7120; U0003